=== PATIENT | female | born 1990 | race Caucasian/White ===

== ENCOUNTER 2021-04-07 09:55 | Emergency (ER) | payer OTHER, SELFPAY ==
[2021-04-07 10:18] VITALS: BP 153/102; PULSE 79; RESP 18; TEMP 36.4; O2SAT 97; BMI 43.4
[2021-04-07 10:26] LABS: UTC Strep Screen (Rapid) Negative (Negative)
--- NOTE | 2021-04-07 10:52 | HMH.EDUTC ---
[facility] [place] Clinical Impression: Sinusitis Qualifiers: Sinusitis location: unspecified location Chronicity: acute Recurrence: non-recurrent Qualified Code(s): J01.90 - Acute sinusitis, unspecified Acute bronchitis Qualifiers: Bronchitis organism: unspecified organism Qualified Code(s): J20.9 - Acute bronchitis, unspecified Disposition: Home, Self-Care Condition on Discharge: Good Instructions: DI for Sinusitis, DI for Acute Bronchitis Additional Instructions: Drink plenty of fluids. Take tylenol or ibuprofen for pain or fever. Take the medications as directed. Follow up with your regular doctor. GO TO THE ER FOR ANY WORSENING SYMPTOMS Quarantine until you know the results of your covid-19 test. If it is positive, the health department should call you and give you further instructions about your length of Quarantine and other things. Notify your school or workplace of your results and follow their instructions regarding return to work/school. Keep an eye on your blood pressure and make sure it's not staying up like it is today. It's probably just because you are feel bad and you have been taking otc cold medications, but make sure your blood pressure is not staying elevated. Prescriptions: Brompheniramine/Pseudoephed/Dm [Bromfed Dm Cough Syrup] 5 ml PO Q6HP PRN #240 ml PRN Reason: Cough Transmission Status: Received by [id number] methylPREDNISolone [Medrol] 4 mg PO DIRECTED 6 Days #21 packet Transmission Status: Received by [facility] guaiFENesin [Mucinex 600mg tablet] 1 - 2 tab PO BIDP PRN #30 tab PRN Reason: Congestion Transmission Status: Received by [facility] Azithromycin [Z-Dylan 250mg Tab*] 250 mg PO UD DOSE PK #6 tab Transmission Status: Received by [facility] Referrals: Provider,Referral, [Primary Care Provider] - Forms: Work/School Release Time of Disposition: 11:07 Medical Decision Making - Medical Records Medical records reviewed: No: I reviewed the patient's medical records. - Reese Inquiry Pt receiving controlled substance: No Vital Signs: 04/07/21 10:18 04/07/21 11:28 Temperature 97.6 F 97.6 F Temperature Source Oral Pulse Rate 79 Pulse Rate [Left] 79 Respiratory Rate 18 18 Blood Pressure 153/102 H Blood Pressure [Right Arm] 153/102 H Blood Pressure Mean [Right Arm] 119 02 Sat by Pulse Oximetry 97 - Lab Data Lab results reviewed: Yes: I reviewed the patient's lab results. Lab Results 04/07/21 10:14: Strep [facility] Negative Orders (Tests/Meds): ORDERS Category Date Time Status Strep Screen Confirmation Routine Micro 04/07/21 10:14 Received [facility] [place] - General Stated complaint: cough, congestion Time Seen by Provider: 04/07/21 10:52 Mode of Arrival: Ambulatory Source of Information: Patient Limitations: No Limitations Description of Symptoms (Recalled from Triage Doc. by RN): pt c/o a cough, nasal drainage, and congestion x1 wk. HEENT Symptoms (Recalled from RN notes): Yes (nasal drainage and congestion) Resp Symptoms (Recalled from RN notes): Yes (cough) Skin Symptoms (Recalled from RN notes): No MS Symptoms (Recalled from RN notes): No Functional Status (Recalled from RN notes): wnl - History of Present Illness Provider Complaint: She c/o cough, chest congestion, sinus congestion and a scratchy sore throat for the past 1 week approx. She has been fully vaccinated against covid-19. She denies fever, but she has been chilling. She works as a dental lab assistant and has been around many people recently, but no docurmented cases of covid-19. - Related Data Previous Rx's Medication Instructions Recorded Azithromycin [Z-Dylan 250mg Tab*] 250 mg PO UD DOSE PK #6 tab 04/07/21 Brompheniramine/Pseudoephed/Dm 5 ml PO Q6HP PRN #240 ml 04/07/21 [Bromfed Dm Cough Syrup] guaiFENesin [Mucinex 600mg tablet] 1 - 2 tab PO BIDP PRN #30 tab 04/07/21 methylPREDNISolone [Medrol] 4
[2021-04-07 11:28] VITALS: BP 153/102; PULSE 79; RESP 18; TEMP 36.4
== END 2021-04-07 11:29 | disposition home or self-care (01) ==
PROVIDERS: Emergency Provider Nurse Practitioner Family
DX: J01.90 Acute sinusitis, unspecified (principal); J20.9 Acute bronchitis, unspecified; Z20.822 Contact with and (suspected) exposure to COVID-19
CPT/HCPCS: 87880; 99203; C9803; G0463; U0003; U0005

== ENCOUNTER 2023-08-09 08:00 | Outpatient (RCR) | payer BC, SELFPAY | END 2023-08-09 09:15 | disposition home or self-care (01) | LOC: PT 08:00 | PROVIDERS: Visit Provider Orthopaedic Surgery Adult Reconstructive Orthopaedic Surgery | DX: M25.562 Pain in left knee (principal); S83.512A Sprain of anterior cruciate ligament of left knee, initial encounter; S83.242A Other tear of medial meniscus, current injury, left knee, initial encounter; S82.002A Unspecified fracture of left patella, initial encounter for closed fracture | CPT/HCPCS: 97010; 97016; 97110; 97140; 97163; 97164; 97530 ==